=== PATIENT | male | born 1975 | race Caucasian/White ===

== ENCOUNTER → 2021-08-03 | Outpatient (CLI) | payer BC ==
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
== END | disposition home or self-care (01) ==
LOC: RADUSWWP 10:48
PROVIDERS: ATTEND Family Medicine
DX: K82.8 Other specified diseases of gallbladder (principal)
CPT/HCPCS: 76700

== ENCOUNTER → 2021-09-25 | Outpatient (CLI) | payer BC ==
--- NOTE | 2021-09-26 09:20 | US ---
EXAMINATION TYPE: US groin LT DATE OF EXAM: 09/25/2021 COMPARISON: NONE CLINICAL HISTORY: R10.30Lower abd pain. Left pelvic pain Left groin appears wnl. No abnormal adenopathy or inguinal hernia is identified by ultrasound. IMPRESSION: 1. Left groin ultrasound appears unremarkable.
--- NOTE | 2021-09-26 10:34 | US ---
EXAMINATION TYPE: US pelvic limited DATE OF EXAM: 09/25/2021 COMPARISON: NONE CLINICAL HISTORY: R10.30Lower abd pain. Left pelvic pain Bladder appears wnl Right pelvis appears wnl Left pelvis appears wnl IMPRESSION: 1. Unremarkable male pelvis. Urinary bladder appears unremarkable.
== END | disposition home or self-care (01) ==
LOC: RADUSWWP 15:28
PROVIDERS: ATTEND Family Medicine
DX: R10.30 Lower abdominal pain, unspecified (principal); R10.2 Pelvic and perineal pain
CPT/HCPCS: 76857

== ENCOUNTER 2023-02-20 08:19 | Emergency (ER) | payer BC ==
[2023-02-20] MEDS ORDERED: LIDOCAINE 2%-EPI 1:100,000 20 ML VIAL SQ STA (08:32)
[2023-02-20] MEDS ORDERED: ONDANSETRON ODT 4 MG TAB PO STA (09:15)
--- NOTE | 2023-02-20 09:37 | ED ---
Wound/Laceration HPI - General Chief Complaint: Wound/Laceration Stated Complaint: hand laceration Time Seen by Provider: 02/20/23 08:32 Source: patient, RN notes reviewed Mode of arrival: ambulatory Limitations: no limitations - History of Present Illness Initial Comments: 47-year-old male presents emergency Department chief complaint of right hand laceration. Patient states that he was on a roof states he slipped there is a piece of sheet metal causing a laceration to his right hand. He states that he has numbness to the finger states is extensive bleeding states he attempted to tie a sheet around his arm. Patient believes his tetanus is up-to-date. - Related Data Previous Rx's Medication Instructions Recorded Cephalexin [Keflex] 500 mg PO Q6HR #28 cap 02/20/23 Allergies Allergy/AdvReac Type Severity Reaction Status Date / Time acetaminophen [From Lortab] Allergy Rash/Hives Verified 02/20/23 08:25 hydrocodone [From Lortab] Allergy Rash/Hives Verified 02/20/23 08:25 Review of Systems ROS Statement: Those systems with pertinent positive or pertinent negative responses have been documented in the HPI. ROS Other: All systems not noted in ROS Statement are negative. Past Medical History Past Medical History: Hypertension History of Any Multi-Drug Resistant Organisms: None Reported Past Surgical History: No Surgical Hx Reported Past Psychological History: No Psychological Hx Reported Smoking Status: Never smoker Past Alcohol Use History: Occasional Past Drug Use History: None Reported General Exam Limitations: no limitations General appearance: alert, in no apparent distress Head exam: Present: atraumatic, normocephalic, normal inspection Eye exam: Present: normal appearance, PERRL, EOMI. Absent: scleral icterus, conjunctival injection, periorbital swelling Neck exam: Present: normal inspection, full ROM. Absent: tenderness, meningismus, lymphadenopathy Respiratory exam: Present: normal lung sounds bilaterally. Absent: respiratory distress, wheezes, rales, rhonchi, stridor Cardiovascular Exam: Present: regular rate, normal rhythm, normal heart sounds. Absent: systolic murmur, diastolic murmur, rubs, gallop, clicks Extremities exam: Present: other (Right hand medial aspect proximal to the fifth digit there is extensive laceration flap in nature with notable bleeding, muscle involvement, totaling 6 cm) Neurological exam: Present: alert Course Vital Signs 02/20/23 02/20/23 08:23 11:19 Temperature 98.2 F 98.1 F Pulse Rate 89 72 Respiratory 20 16 Rate Blood Pressure 181/99 148/90 O2 Sat by Pulse 99 97 Oximetry Procedures - Laceration Laceration #1 Consent Obtained: verbal consent Indication: laceration Site: hand Size (cm): 6 Description: flap, irregular Depth: involves muscle layer, involves tendon, arterial injury Anesthetic Used: lidocaine 1%, with epi Anesthesia Technique: local infiltration Amount (mls): 6 Pre-repair: wound explored, irrigated extensively Type of Sutures: vicryl Size of Sutures: 4-0 Number of Sutures: 19 Technique: simple, interrupted Patient Tolerated Procedure: well, no complications - Orthopedic Splinting/Casting Injury #1 Side: right Upper Extremity Injury Location: short arm, hand Upper Extremity Immobilizer: ulnar gutter, synthetic pre-padded splint Medical Decision Making - Medical Decision Making Was pt. sent in by a medical professional or institution (, PA, PRESIDENT AND CHIEF COMMERCIAL OFFICER, urgent care, hospital, or fdc...) When possible be specific @ -No Did you speak to anyone other than the patient for history (EMS, parent, family, police, friend...)? What history was obtained from this source @ -No Did you review nursing and triage notes (agree or disagree)? Why? @ -I reviewed and agree with nursing and triage notes Were old charts reviewed (outside hosp., previous admission, EMS record, old EKG, old radiological studies, urgent care reports/EKG's, fdc records)? Report findings @ -No old charts were reviewed Differential Diagnosis (chest pain, altered mental status, abdominal pain women, abdominal pain men, vaginal bleeding, weakness, fever, dyspnea, syncope, headache, dizziness, GI bleed, back pain, seizure, CVA, palpatations, mental health, musculoskeletal)? @ -hand laceration EKG interpreted by me (3pts min.). @ -None X-rays interpreted by me (1pt min.). @ -None done CT interpreted by me (1pt min.). @ -None done U/S interpreted by me (1pt. min.). @ -None done What testing was considered but not performed or refused? (CT, X-rays, U/S, labs)? Why? @ -None What meds were considered but not given or refused? Why? @ -None Did you discuss the management of the patient with other professionals (professionals i.e. , PA, PRESIDENT AND CHIEF COMMERCIAL OFFICER, lab, RT, psych nurse, social services, bridge design engineer, lindsey acherandi, personal banking officer, trimming caser)? Give summary @ -I did contact vascular surgery immediately after evaluation the patient they will recommend contacting hand surgery as this is a hand injury of the hand I did contact orthopedics in which they determined the patient does not need for closure and patient may have closure in the emergency department with follow-up in office Was smoking cessation discussed for >3mins.? @ -No Was critical care preformed (if so, how long)? @ -No Were there social determinants of health that impacted care today? How? (Homelessness, low income, unemployed, alcoholism, drug addiction, transportation, low edu. Level, literacy, decrease access to med. care, retirement, rehab)? @ -No Was there de-escalation of care discussed even if they declined (Discuss DNR or withdrawal of care, Hospice)? DNR status @ -No What co-morbidities impacted this encounter? (DM, HTN, Smoking, COPD, CAD, Cancer, CVA, ARF, Chemo, Hep., AIDS, mental health diagnosis, sleep apnea, morbid obesity)? @ -None Was patient admitted / discharged? Hospital course, mention meds given and route, prescriptions, significant lab abnormalities, going to OR and other pertinent info. @ -Discharge patient extensive laceration of his right hand is concern for tendon involvement, there was vascular injury noted patient does have good capillary refill of the digits. Patient hand was thoroughly irrigated,, closure with sutures, patient was splinted and will follow-up with orthopedics to have long discussion given the patient's complex laceration and needs follow-up. Undiagnosed new problem with uncertain prognosis? @ -No Drug Therapy requiring intensive monitoring for toxicity (Heparin, Nitro, Insulin, Cardizem)? @ -No Were any procedures done? @ -No Diagnosis/symptom? @ -Complex hand laceration, tendon involvement Acute, or Chronic, or Acute on Chronic? @ -Acute Uncomplicated (without systemic symptoms) or Complicated (systemic symptoms)? @ -[Complicated Side effects of treatment? @ -No Exacerbation, Progression, or Severe Exacerbation? @ -No Poses a threat to life or bodily function? How? (Chest pain, [place], [place], pneumonia, PE, COPD, DKA, ARF, appy, cholecystitis, CVA, Diverticulitis, Homicidal, Suicidal, threat to staff... and all critical care pts) @ -No Disposition Clinical Impression: Laceration of hand Disposition: HOME SELF-CARE Condition: Stable Instructions (If sedation given, give patient instructions): Care For Your Stitches (ED), Laceration (ED) Additional Instructions: Please return to the Emergency Department if symptoms worsen or any other concerns. Prescriptions: Cephalexin [Keflex] 500 mg PO Q6HR #28 cap Is patient prescribed a controlled substance at d/c from ED?: No Referrals: Destiney Leach MD [Primary Care Provider] - 1-2 days Evonne Jacobs DO [Doctor of Osteopathic Medicine] - 1-2 days Time of Disposition: 10:25
[2023-02-20] MEDS ORDERED: BACITRACIN OINT 1 EACH PACKET TOPICAL ONE (10:23)
[2023-02-20 11:20] VITALS: BP 148/90; PULSE 72; RESP 16; TEMP 98.1
== END 2023-02-20 11:05 | disposition home or self-care (01) ==
LOC: EC 08:19
DX: S61.411A Laceration without foreign body of right hand, initial encounter (principal); I10 Essential (primary) hypertension; Z88.8 Allergy status to other drugs, medicaments and biological substances; W26.9XXA Contact with unspecified sharp object(s), initial encounter
CPT/HCPCS: 12002; 99282

== ENCOUNTER → 2024-05-04 | Outpatient (CLI) | payer BC ==
--- NOTE | 2024-05-05 08:48 | US ---
EXAMINATION TYPE: US extremity nonvasc mass RT DATE OF EXAM: 05/04/2024 COMPARISON: NONE CLINICAL INDICATION: Male, 48 years old with history of R22.9 MASS OR LUMP, RIGHT; Right anterior salty ulder lump, squishy. Patient states he noticed it x few days ago. No injury. No change in size. TECHNIQUE: Multiple sonographic images taken of area of concern. FINDINGS/IMPRESSION: Right anterior proximal upper arm at site of palpable abnormality is a compress ible striated region which blends in with surrounding fat measuring 4.4 x 2.9 x 1.1 cm. Indistinct b orders. No internal color flow. It may represent a lipoma. Consider further evaluation with MRI as cl inically indicated. [facility], , 05/05/2024 8:46 AM
== END | disposition home or self-care (01) ==
LOC: RADUSWWP 15:57
PROVIDERS: ATTEND Family Medicine
DX: R22.31 Localized swelling, mass and lump, right upper limb (principal)

== ENCOUNTER → 2024-06-14 | Outpatient (CLI) | payer BC ==
--- NOTE | 2024-06-18 21:38 | MR ---
EXAMINATION TYPE: MR humerus RT w/wo con DATE OF EXAM: 06/14/2024 9:38 PM COMPARISON: Ultrasound 05/04/2024 CLINICAL INDICATION: Male, 48 years old with history of R22.9, lump on front of right shoulder/axilla . TECHNIQUE: Multiplanar multi-sequence imaging was performed. No gadolinium given. IV Contrast: 10.5 cc Gadavist (None if empty) FINDINGS: Soft tissues: The musculature does appear to be within normal limits. The signal intensity is unrema rkable. Rotator cuff appears grossly intact. No soft tissue mass in the subcutaneous tissues to corre late with prior ultrasound. No abnormal enhancement. No palpable marker was placed for definitive loc alization. Osseous structures: The bone marrow signal intensity of the humerus is within normal limits. Osteoar thritic changes are noted of the acromioclavicular and glenohumeral joint.. The acromion is a type I I. Insertional subchondral cystic change and insertion of the superior spinous tendon on the humeral head. IMPRESSION: 1. No subcutaneous mass definitively visualized. Abundance of soft tissue noted. No palpable marker was placed. Findings favor lipoma, consider short-term follow-up ultrasound. 2. Osteoarthritic changes. [facility], , 06/18/2024 9:36 PM
== END | disposition home or self-care (01) ==
LOC: RADMRIMAIN 20:45
PROVIDERS: ATTEND Family Medicine
DX: M19.011 Primary osteoarthritis, right shoulder (principal)
CPT/HCPCS: 73220; A9585